=== PATIENT | female | born 1980 | race Caucasian/White ===

== ENCOUNTER 2018-05-26 18:42 | Emergency (ER) | payer OTHER ==
[2018-05-26 18:52] VITALS: BP 129/90
[2018-05-26 19:57] LABS: BILIRUBIN,URINE NEGATIVE (NEGATIVE); GLUCOSE, URINE (UA) NEGATIVE (NEGATIVE); KETONES,URINE (UA) NEGATIVE (NEGATIVE); LEUKOCYTE ESTERASE, URINE NEGATIVE (NEGATIVE); NITRITE,URINE NEGATIVE (NEGATIVE); OCCULT BLOOD,URINE NEGATIVE (NEGATIVE); PROTEIN,URINE NEGATIVE (NEGATIVE); UROBILINOGEN,URINE 1 (NORMAL) E.U./dL (NORMAL)
[2018-05-26 20:03] LABS: CLARITY,URINE CLEAR (CLEAR); HCG UR QUAL NEGATIVE
--- NOTE | 2018-05-26 22:11 | ED Physician Documentation ---
PD HPI FEMALE - Stated complaint Stated Complaint: WANTS STI TEST - Chief complaint Chief Complaint: Abd Pain - History obtained from History obtained from: Patient - History of Present Illness Timing - onset: How many days ago (few) Timing - duration: Days (few) Timing - details: Gradual onset, Waxing and waning Associated symptoms: Dysuria, Urinary frequency. No: Vaginal bleeding, Vaginal discharge Contributing factors: Exposed to STD (her partner told her that he was treated for STD last week. He did not say what type.) Review of Systems Constitutional: denies: Fever, Chills Nose: denies: Rhinorrhea / runny nose, Epistaxis Throat: denies: Sore throat Respiratory: denies: Cough GI: denies: Abdominal Pain, Nausea, Vomiting : reports: Dysuria, Discharge Skin: denies: Rash, Lesions PD PAST MEDICAL HISTORY - Past Medical History Cardiovascular: None ROLL CUTTER: None - Present Medications Home Medications: Ambulatory Orders Medication Instructions Recorded Confirmed Metronidazole [Flagyl] 500 mg PO BID #20 tablet 05/26/18 - Allergies Allergies/Adverse Reactions: Allergies Allergy/AdvReac Type Severity Reaction Status Date / Time cyclobenzaprine Allergy Unknown Verified 05/26/18 18:53 [From Flexeril] meloxicam [From Mobic] Allergy Unknown Verified 05/26/18 18:53 PD ED PE NORMAL - Vitals Vital signs reviewed: Yes - General General: Alert and oriented X 3, No acute distress, Well developed/nourished - Cardiac Cardiac: RRR, No murmur - Respiratory Respiratory: Clear bilaterally - Abdomen Abdomen: Soft, Non tender - Female Female : [employer] present, Other (moderate white, milky, mucous discharge c/w BV. External genitalia normal. ) - Rectal Rectal: Deferred - Back Back: No CVA TTP - Derm Derm: Normal color, Warm and dry - Extremities Extremities: No tenderness to palpate, Normal ROM s pain, No calf tenderness / cord - Neuro Neuro: Alert and oriented X 3, No motor deficit, Normal speech Results - Vitals Vitals: Oxygen O2 Source Room air - Labs Labs: Microbiology 05/26/18 22:38 Wet Prep - Final Genital - Cervix Laboratory Tests 05/26/18 05/26/18 19:00 22:38 Urine Color YELLOW Urine Clarity CLEAR Urine pH 8.0 H Ur Specific [place] 1.015 Urine Protein NEGATIVE Urine Glucose (UA) NEGATIVE Urine Ketones NEGATIVE Urine Occult Blood NEGATIVE Urine Nitrite NEGATIVE Urine Bilirubin NEGATIVE Urine Urobilinogen 1 (NORMAL) Ur Leukocyte Esterase NEGATIVE Ur Microscopic Review NOT INDICATED Urine Culture Comments NOT INDICATED Urine HCG, Qual NEGATIVE C.trachomatis RNA (TMA) NOT DETECTED Chlamydia/GC Comment SEE NOTE N.gonorrhoeae RNA (TMA) NOT DETECTED PD MEDICAL DECISION MAKING - ED course Complexity details: reviewed results, considered differential (seems likely just BV), d/w patient Departure - Departure Disposition: 01 Home, Self Care Clinical Impression: Dysuria, Bacterial vaginitis Condition: Stable Record reviewed to determine appropriate education?: Yes Instructions: ED Vaginosis Bacterial Follow-Up: Clemente De Souza ARNP [Primary Care Provider] - Prescriptions: Metronidazole [Flagyl] 500 mg PO BID #20 tablet Comments: Your exam is consistent with a bacterial vaginitis. This may be an STD type such as chlamydia and will treat for that. There may also be instead a more simpler bacterial vaginosis and so take the Flagyl twice daily for a week as prescribed for that. We will get the culture results back in 2-3 days and call you if we need to amend that. Discharge Date/Time: 05/26/18 22:59
[2018-05-26] MEDS ORDERED: AZITHROMYCIN 250 MG TABLET PO STA (22:49)
== END 2018-05-26 22:59 | disposition home or self-care (01) ==
LOC: ED 18:42
DX: R30.0 Dysuria (principal); N76.0 Acute vaginitis
CPT/HCPCS: 81001; 81003; 81025; 87086; 87210; 87491; 87591; 99283; 99284

== ENCOUNTER 2020-02-09 07:00 | Outpatient (CLI) | payer OTHER ==
[2020-02-09 09:37] LABS: BASOPHILS % (AUTO) 0.4 %; EOSINOPHILS # (AUTO) 0.1 10^3/uL (0.0-0.7); EOSINOPHILS % (AUTO) 1.8 %; HGB - HEMOGLOBIN 14.5 g/dL (12.0-16.0); LYMPHOCYTES # (AUTO) 1.5 10^3/uL (1.5-3.5); LYMPHOCYTES % (AUTO) 30.6 %; MEAN CORPUSCULAR HEMOGLOBIN 29.5 pg (27.0-31.0); MEAN CORPUSCULAR HGB CONC 33.3 g/dL (32.0-36.0); MEAN CORPUSCULAR VOLUME 88.8 fL (81.0-99.0); MEAN PLATELET VOLUME 11.4 fL (7.9-10.8); MONOCYTES # (AUTO) 0.6 10^3/uL (0.0-1.0); MONOCYTES % (AUTO) 11.3 %; NEUTROPHILS # (AUTO) 2.7 10^3/uL (1.5-6.6); NEUTROPHILS % (AUTO) 55.5 %; PLT - PLATELET COUNT 241 10^3/uL (130-450); RED BLOOD COUNT 4.91 10^6/uL (4.20-5.40); RED CELL DISTRIBUTION WIDTH 12.9 % (12.0-15.0); WHITE BLOOD COUNT 4.9 x10^3/uL (4.8-10.8)
[2020-02-09 10:04] LABS: T4 (THYROXINE) 8.94 ug/dL (6.09-12.23)
[2020-02-09 10:06] LABS: THYROID STIMULATING HORMONE 2.51 uIU/mL (0.34-5.60)
[2020-02-09 10:08] LABS: FREE T4 (FREE THYROXINE) 1.08 ng/dL (0.58-1.64)
[2020-02-09 10:13] LABS: TOTAL T3 1.27 ng/mL (0.87-1.78)
[2020-02-09 10:18] LABS: FOLATE 20.98 ng/mL (5.90 - >24.8)
[2020-02-09 10:55] LABS: ALBUMIN 4.8 g/dL (3.2-5.5); ALBUMIN/GLOBULIN RATIO 1.7 (1.0-2.2); BILIRUBIN,TOTAL 0.9 mg/dL (0.2-1.0); CALCIUM 9.3 mg/dL (8.5-10.3); CREATININE 0.7 mg/dL (0.4-1.0); TOTAL PROTEIN 7.7 g/dL (6.7-8.2)
[2020-02-09 11:20] LABS: HEMOGLOBIN A1c% 5.2 % (4.27-6.07)
[2020-02-10 10:21] LABS: PROGESTERONE 0.9 ng/mL
== END 2020-02-09 23:59 | disposition home or self-care (01) ==
LOC: LAB.R 07:00
DX: Z00.01 Encounter for general adult medical examination with abnormal findings (principal); G47.9 Sleep disorder, unspecified; R53.83 Other fatigue; R45.4 Irritability and anger; N92.6 Irregular menstruation, unspecified; Z13.1 Encounter for screening for diabetes mellitus; Z13.220 Encounter for screening for lipoid disorders; Z13.21 Encounter for screening for nutritional disorder; Z13.228 Encounter for screening for other metabolic disorders
CPT/HCPCS: 80053; 81599; 82040; 82306; 82672; 82746; 83036; 83540; 84144; 84270; 84403; 84436; 84439; 84443; 84466; 84480; 85025